=== PATIENT | male | born 1955 | race Caucasian/White ===

== ENCOUNTER → 2017-08-21 | Outpatient (CLI) | payer MEDICAID ==
[~2017-08-21] MED LIST: ASPIRIN 81MG TA81 MG PO; CLARITHROMYCIN500 MG PO; COUMADIN 2.5MG2.5 MG PO; COUMADIN 5MG TAB5 MG PO; FINASTERIDE5 MG PO; FLOMAX 0.4MG C0.4 MG PO; NICOTINE PATCH;21 MG TD; VENTOLIN H0.09 MG/AC IH
--- NOTE | 2017-08-21 10:31 | CARDIOVASCULAR REPORT ---
"Venous Exam Indications: 729.5 Pain in limb. 729.81 Swelling of limb. IMPRESSIONS 1. There is no evidence of significant Reflux. 2. No evidence of deep or superficial vein thrombosis involving the left lower extremity History: PMH: Deep vein thrombosis. Left lower extremity venous duplex evaluation. Doppler flow study including spectral analysis, color and coughlin scale imaging. Location: Vascular laboratory. Patient status: Outpatient. Tables: Venous flow and imaging: + +-------+ + |Location |Overall|Flow properties | + +-------+ + |Left common femoral |Patent |Normal phasicity; spontaneous; | | | |normal augmentation; compressible | + +-------+ + |Left saphenofemoral junction|Patent |Compressible | + +-------+ + |Left profunda femoral |Patent |Compressible | + +-------+ + |Left femoral |Patent |Normal phasicity; spontaneous; | | | |normal augmentation; compressible | + +-------+ + |Left greater saphenous |Patent |Normal phasicity; spontaneous; | | | |normal augmentation; compressible | + +-------+ + |Left popliteal |Patent |Normal phasicity; spontaneous; | | | |normal augmentation; compressible | + +-------+ + |Left posterior tibial |Patent |Compressible | + +-------+ + |Left peroneal |Patent |Compressible | + +-------+ + |Left gastrocnemius |Patent |Compressible | + +-------+ + |Left soleal |Patent |Compressible | + +-------+ + (Report amended ) Electronically signed by: Taj Sanchez [id number]"
[2017-08-21 13:55] LABS: LYMPH # 2.3 K/mm3 (0.7-4.5); LYMPH % 23.5 % (10-50)
[2017-08-21 14:05] LABS: BUN 21 mg/dL (7-18)
[2017-08-21 14:06] LABS: GFR (ESTIMATED) 56 ML/MIN (>60)
[2017-08-21 15:32] LABS: HEMOGLOBIN 15.9 g/dL (14.1-18.0)
== END ==
LOC: RT 10:04 → LAB 10:04
PROVIDERS: Nurse Practitioner Family
DX: R60.0 Localized edema (principal); R53.83 Other fatigue; E55.9 Vitamin D deficiency, unspecified